=== PATIENT | female | born 1975 | race Two or more races ===

== ENCOUNTER 2020-07-26 08:30 | Day surgery (SDC) | payer OTHER ==
[~2020-07-26 08:30] MED LIST: SYNTHROID150 MCG PO
[2020-07-26] MEDS ORDERED: IBU600 MG PO (12:37)
== END 2020-07-26 17:15 | disposition home or self-care (01) ==
LOC: CIR.AMB 08:30
PROVIDERS: ATTEND Obstetrics & Gynecology Gynecology
DX: N72 Inflammatory disease of cervix uteri (principal); Z20.828 Contact with and (suspected) exposure to other viral communicable diseases; Z30.432 Encounter for removal of intrauterine contraceptive device